=== PATIENT | female | born 2000 | race African-American/Black ===

== ENCOUNTER 2022-12-29 10:08 | Outpatient (CLI) | payer OTHER, SELFPAY ==
[2022-12-29 10:44] LABS: Basophils Percent Auto 0.4 % (0.2-1.2); Eosinophils Absolute Auto 0.3 K/mm3 (0-0.3); Eosinophils Percent Auto 3.1 % (0-4.4); Hematocrit 31.9 % (37.0-47.0); Hemoglobin 10.8 g/dL (12.0-15.0); Immature Granulocyte Absolute 0.04 K/mm3 (0.00-0.031); Immature Granulocyte Percent A 0.4 % (0-0.5); Lymphocytes Absolute Auto 2.76 K/mm3 (0.9-3.2); Mean Corpuscular HGB Conc 33.9 g/dl (32-36); Mean Corpuscular Hemoglobin 31.7 pg (26-34); Mean Corpuscular Volume 93.5 fl (80-100); Mean Platelet Volume 9.3 fl (7.4-10.4); Monocytes Absolute Auto 0.9 K/mm3 (0.1-0.6); Neutrophils Absolute Auto 5.8 K/mm3 (1.3-6.7); Neutrophils Percent Auto 59.1 % (45.5-73.1); Platelet Count Result 290 k/mm3 (150-375); Red Blood Count 3.41 M/mm3 (4.2-5.4); Red Cell Distribution Width 13.4 % (11.5-14.5); White Blood Count 9.9 K/mm3 (4.5-10.0)
[2022-12-29 11:38] LABS: HIV 1/2 Ab P24 Ag Result Negative (Negative)
[2022-12-29 12:20] LABS: Hepatitis B Surface Antigen Negative (Negative); Rubella IgG Antibody 16.6 IU/ML
[2022-12-30 11:22] LABS: Rapid Plasma Reagin Non-Reactive (NonReactive)
== END 2022-12-29 10:09 | disposition home or self-care (01) ==
PROVIDERS: Visit Provider Student in an Organized Health Care Education/Training Program
DX: N91.2 Amenorrhea, unspecified (principal)
CPT/HCPCS: 36415; 84702; 85025; 85660; 86592; 86644; 86703; 86747; 86762; 86787; 86850; 86900; 86901; 87086; 87340; G0432

== ENCOUNTER 2023-02-26 13:10 | Outpatient (CLI) | payer OTHER, SELFPAY ==
[2023-02-26 14:03] LABS: Iron 268 ug/dL (37-170)
[2023-02-26 14:12] LABS: Percent Iron Saturation 71 % (20-50)
== END 2023-02-26 13:11 | disposition home or self-care (01) ==
LOC: ANHLAB 13:11
PROVIDERS: Visit Provider Obstetrics & Gynecology
DX: D64.9 Anemia, unspecified (principal)
CPT/HCPCS: 36415; 82728; 83540; 83550

== ENCOUNTER 2023-03-15 14:55 | Outpatient (CLI) | payer OTHER, SELFPAY ==
[2023-03-15 16:21] LABS: Hematocrit 32.1 % (37.0-47.0); Hemoglobin 10.5 g/dL (12.0-15.0); Mean Corpuscular HGB Conc 32.7 g/dl (32-36); Mean Corpuscular Volume 97.9 fl (80-100); Mean Platelet Volume 9.4 fl (7.4-10.4); Platelet Count Result 235 k/mm3 (150-375); Red Blood Count 3.28 M/mm3 (4.2-5.4); Red Cell Distribution Width 13.4 % (11.5-14.5); White Blood Count 8.3 K/mm3 (4.5-10.0)
[2023-03-15 16:37] LABS: Glucose 1 Hour PP 50gm Dose 106 mg/dL
[2023-03-15 17:15] LABS: HIV 1/2 Ab P24 Ag Result Negative (Negative)
== END 2023-03-15 14:56 | disposition home or self-care (01) ==
LOC: ANHLAB 14:56
PROVIDERS: Visit Provider Student in an Organized Health Care Education/Training Program
DX: Z34.90 Encounter for supervision of normal pregnancy, unspecified, unspecified trimester (principal); Z3A.00 Weeks of gestation of pregnancy not specified
CPT/HCPCS: 36415; 82947; 85027; 86703; G0432

== ENCOUNTER 2023-05-29 20:32 | Observation (INO) | payer OTHER, SELFPAY ==
--- NOTE | 2023-05-29 22:55 | PC.NURSE ---
[address] LOWRY[address] DISCHARGE ORDERS RECEIVED.
[2023-05-29 23:04] VITALS: BMI 26.2
--- NOTE | 2023-05-29 23:05 | OBADM ---
This patient, Ramona Reynoso, admitted to the OB room OB Post 117 for observation. Patient/family oriented to hospital policies and general routines including ID bracelet, bed and alarms, visiting hours, pain management, procedures, bathroom and other care routines, personal items, smoking policy, room service/diet, and visiting hours. Patient/Family are encouraged to report perceived risks to care and to ask questions if they do not understand what they are told or what they should do.
--- NOTE | 2023-05-29 23:20 | PC.NURSE ---
DISCHARGE INSTRUCTIONS GIVEN VERBALLY AND WRITTEN TO PT. PT DENIES QUESTIONS OR CONCERNS AND VERBALIZES UNDERSTANDING. PT LEAVES L&D AMBULATORY.
--- NOTE | 2023-06-01 07:39 | PM.OBTRLD ---
OB - Triage/Final Diagnosis Visit Information Comments/Additional reasons for admission: I have assessed the risk for this patient, Ramona Reynoso, and determined that she would benefit from observation care. Final Diagnosis (1) Round ligament pain: Code(s): N94.9 - Unspecified condition associated with female genital organs and menstrual cycle Status: Acute
== END 2023-05-29 23:20 | disposition home or self-care (01) ==
PROVIDERS: Admitting Provider Obstetrics & Gynecology; Visit Provider Student in an Organized Health Care Education/Training Program
DX: O26.893 Other specified pregnancy related conditions, third trimester (principal); R10.2 Pelvic and perineal pain; Z3A.39 39 weeks gestation of pregnancy
CPT/HCPCS: G0378; G0379

== ENCOUNTER 2023-06-01 19:50 | Inpatient (IN) | payer OTHER, SELFPAY ==
[2023-06-01] VITALS (19 sets, daily range): BP systolic 120–138; BP diastolic 75–89; PULSE 64–111; TEMP 36.4; O2SAT 99–100; BMI 24.5
--- NOTE | 2023-06-01 22:20 | LDADM ---
This patient, Ramona Reynoso, was admitted to Labor/Delivery/Recovery 107 on 06/01/23 at 21:31. Plans for labor, pain management and were discussed with patient. Patient/family oriented to hospital policies and general routines including ID bracelet, bed and alarms, visiting hours, pain management, procedures, bathroom and other care routines, personal items, smoking policy, room service/diet and guest tray routines, security routines, and visiting hours. Patient/Family are encouraged to report perceived risks to care and to ask questions if they do not understand what they are told or what they should do. See OBIX for further documentation.
[2023-06-01] MEDS: LACTATED RINGERS 1,000 ML 125 ML IV CONT (22:30)
[2023-06-01] MEDS: fentaNYL CITRATE INJ (*CRX) 100 MCG/2 ML VIAL 50 MCG IV PUSH (22:30)
[2023-06-01 22:34] LABS: Basophils Percent Auto 0.4 % (0.2-1.2); Eosinophils Absolute Auto 0.1 K/mm3 (0-0.3); Eosinophils Percent Auto 0.7 % (0-4.4); Hematocrit 38.1 % (37.0-47.0); Hemoglobin 13.2 g/dL (12.0-15.0); Immature Granulocyte Absolute 0.05 K/mm3 (0.00-0.031); Immature Granulocyte Percent A 0.6 % (0-0.5); Lymphocytes Absolute Auto 2.21 K/mm3 (0.9-3.2); Lymphocytes Percent Auto 26.7 % (18.3-44.2); Mean Corpuscular HGB Conc 34.6 g/dl (32-36); Mean Corpuscular Hemoglobin 32.6 pg (26-34); Mean Corpuscular Volume 94.1 fl (80-100); Mean Platelet Volume 9.9 fl (7.4-10.4); Monocytes Absolute Auto 0.6 K/mm3 (0.1-0.6); Monocytes Percent Auto 7.6 % (2.6-8.5); Neutrophils Absolute Auto 5.3 K/mm3 (1.3-6.7); Platelet Count Result 242 k/mm3 (150-375); Red Blood Count 4.05 M/mm3 (4.2-5.4); Red Cell Distribution Width 12.7 % (11.5-14.5); White Blood Count 8.3 K/mm3 (4.5-10.0)
--- NOTE | 2023-06-01 23:30 | WPDANESEPPF ---
Anes - Initial Pre Proc Eval Procedure: Labor epidural Date/Time: 06/01/23 23:30 Surgeon: Dirk Mccallum MD Pre Op Diagnosis: Labor Pain Pre Op Diagnosis: Contractions Patient Data Age: 22 Gender: F Height: 1.6 m Weight: 63 kg Last Vital Signs Pulse 86 06/01/23 23:28 BP 128/82 06/01/23 23:28 Pulse Ox 100 06/01/23 23:29 O2 Del Method Room Air 06/01/23 22:16 Allergies Allergy/AdvReac Type Severity Reaction Status Date / Time No Known Allergies Allergy Verified 05/26/23 14:46 Home Medications Medication Instructions Recorded Confirmed Type ondansetron HCl 4 mg tablet 4 mg PO Q6H PRN nausea and 04/14/23 04/14/23 Rx vomiting #30 tabs ferrous sulfate 325 mg (65 mg 325 mg PO DAILY #90 tabs 04/29/23 04/29/23 Rx iron) tablet vits no.126-ferrous fum 1 tablet PO .QD #60 tabs 04/29/23 04/29/23 Rx 28 mg iron-folic acid 800 mcg tablet (Classic ) Laboratory Tests 06/01/23 22:27 WBC 8.3 K/mm3 (4.5-10.0) RBC 4.05 L M/mm3 (4.2-5.4) Hgb 13.2 g/dL (12.0-15.0) Hct 38.1 % (37.0-47.0) MCV 94.1 fl (80-100) MCH 32.6 pg (26-34) MCHC 34.6 g/dl (32-36) RDW 12.7 % (11.5-14.5) Plt Count 242 k/mm3 (150-375) MPV 9.9 fl (7.4-10.4) Immature Gran % (Auto) 0.6 H % (0-0.5) Neut % (Auto) 64.0 % (45.5-73.1) Lymph % (Auto) 26.7 % (18.3-44.2) [place] % (Auto) 7.6 % (2.6-8.5) Eos % (Auto) 0.7 % (0-4.4) Baso % (Auto) 0.4 % (0.2-1.2) Lymph # (Auto) 2.21 K/mm3 (0.9-3.2) [place] # (Auto) 0.6 K/mm3 (0.1-0.6) Eos # (Auto) 0.1 K/mm3 (0-0.3) Baso # (Auto) 0.0 K/mm3 (0.0-0.1) Abs Immat Gran (auto) 0.05 H K/mm3 (0.00-0.031) Absolute Neuts (auto) 5.3 K/mm3 (1.3-6.7) Absolute Nucleated RBC 0.0 K/mm3 (0.0-0.012) Nucleated RBC % 0.0 % (0.0-0.2) RPR Pending Patient hx anesthesia problems: none Family hx anesthesia problems: none Results Review: All pre-operative results and documents have been reviewed as part of the pre-operative evaluation. PMFSH Family History Family History Mother Hypertension Social History Social History Smoking status: Never smoker Alcohol intake: never Substance use: never Lack of Transportation: No Lack of Food: Never True Current Housing: I Have Housing Concerned About Future Housing: No Difficulty Paying Gas/Electric Bills: No Difficulty Paying for Meds: No Currently Unemployed: No Education: High School Diploma/GED Difficulty w/ Childcare or Family Care: No Living arrangements: with family Occupation/Education: occupation Gender identity (if verbalized by the patient): Female Sexual Orientation (if Verbalized by the Patient): Straight or Heterosexual Spiritual care concerns: No Anes - Eval Final PreProcedure Day of Procedure 06/01/23 23:30 Patient weight: normal Heart: regular rate and rhythm Neurological: alert and oriented ASA classification: II Anesthetic plan: proceed Anesthesia type and monitoring: regional epidural and standard monitoring Results Review: All pre-operative results and documents have been reviewed as part of the pre-operative evaluation. Informed Consent: The patient's anesthetic plan and its attendant risks and benefits were discussed with the patient/family/POA. Questions were solicited and answers provided to the satisfaction of the patient/family/POA.
--- NOTE | 2023-06-01 23:52 | WPDANESEPN ---
Anes - Epidural Procedure Note Date/Time: 06/01/23 23:52 Consent: I have discussed with the patient/family/POA, the placement of an epidural catheter and the use of epidural narcotic/local anesthetic for labor analgesia and/or postoperative pain management, including associated potential risks, benefits, complications and side effects. I have discussed alternative methods of labor analgesia and/or postoperative pain management. The patient/family/POA, understand(s) and wish(es) to proceed with epidural narcotic/local anesthetic for labor analgesia and/or postoperative pain management. Time-Out: A pre-procedural Time-Out was completed immediately before starting the procedure and confirmed: Patient Identification, Site, Procedure, Patient Position and the Availability of Requisite Equipment. Clinical Indications: Labor pain Epidural Insertion Note Patient position: sitting Skin prep: chlorhexidine and sterile drape Needle: 17g Tuohy Catheter: 19g Arrow FlexTip Plus Technique: Loss of resistance. Level of insertion: L3/4 Catheter skin reza (cm): 9 Length in epidural space (cm): 4 Skin anesthesia: lidocaine 1% Test dose: 1.5% Lidocaine with 1:[id number] Epi, negative for subarachnoid Inj and negative for intravascular Inj Time of test dose: 23:46 Observations: tolerated well Complications: none
[2023-06-02] VITALS (123 sets, daily range): BP systolic 99–136; BP diastolic 54–111; PULSE 40–174; RESP 16–18; TEMP 36.2–36.8; O2SAT 75–100
[2023-06-02] MEDS: LACTATED RINGERS 1,000 ML 125 ML IV CONT (00:01)
[2023-06-02] MEDS: OXYTOCIN 30 UNITS/NS 500 ML 30 UNITS/500 ML BAG 999 UNITS IV CONT (06:00)
[2023-06-02] MEDS: OXYTOCIN 30 UNITS/NS 500 ML 30 UNITS/500 ML BAG 125 UNITS IV CONT (07:41)
--- NOTE | 2023-06-02 07:51 | WPDHPUPDATE1 ---
History and Physical Update Update Date/Time: 06/02/23 07:51 22 yo G1 at 39w6d who presents in labor. Her is uncomplicated thus far. History and Physical has been reviewed, including an updated exam of the patient. There are NO changes in the patient's condition. Risks, benefits, and alternatives have been discussed and questions answered. Patient agrees to proceed with procedure. A/P: admit to L&D routine admission orders Rh+ GBS neg continuous EFM admit for expectanat management
--- NOTE | 2023-06-02 07:54 | PM.OBPRVD ---
OB - Delivery Note Procedure Delivery date: 06/02/23 Induction method: None Delivery monitor: External FHT and External Uterine Route of delivery: Episiotomy description: None Laceration Description: Perineal - 2nd Degree Delivery repair: vicryl Specimen: No Quantitative Blood Loss (ml): 200 Anesthesia type: Epidural Disposition: Floor Baby Date of : 06/02/23 Time of : 06:57 Weeks of gestation at delivery: 39 gender: Male presentation: vertex position: Right Occiput Anterior Placenta delivery description: Spontaneous Cord Vessel Description: 3 Vessels score one minute: 9 score five minutes: 9 AMG Delivery Billing Delivery Delivery: Delivery Charge
[2023-06-02] MEDS: IBUPROFEN 600 MG TABLET PO ×3 (08:36→21:59)
[2023-06-02] MEDS: WITCH HAZEL 40 PADS 1 PAD TOPICAL (09:14)
[2023-06-02] MEDS: BENZOCAINE 20% AER SPR (*SP) 56 GM CAN 1 SPRAY TOPICAL (09:14)
--- NOTE | 2023-06-02 09:40 | OBPPTRN ---
Patient transferred to post room # 292 via wheelchair accompanied by fob and . Support person present. PT introductions made and plan of care discussed per post , pain management, breast feeding, daily care activities. PT Oriented to unit, room, information board, rooming in, admission packet and security measures. PT and fob both recipients of such instructions and no barriers to learning identified at this time. PT received such instructions per one to one discussion, mom baby care guide and demonstrations this shift. Patient verbalizes understanding.
[2023-06-02 10:43] LABS: Rapid Plasma Reagin Non-Reactive (NonReactive)
--- NOTE | 2023-06-02 12:01 | PC.NURSE ---
[id number] Introductions were made, then consulted with patient to assess needs related to per request from Primary RN. Mother is sleeping but the plan is to wake her at 1130 to breastfeed. Once awake mother states her did not latch on the right breast. Mother is encouraged to go to the restroom and get comfortable in the bed with [id number] and call for assistance. Father of baby is helpful. RN changed the 3rd stool diaper since . Infant is awake and demonstrating feeding cues. Mother remains in the restroom and voices placing infant [id number] when she gets out. Name is written on the communication board to call for questions and assistance.
--- NOTE | 2023-06-02 13:24 | PC.NURSE ---
[id number] Re-introductions were made, then consulted with patient to assess needs related to . Mother states she wants to breastfeed. Mother works well with her with encouragement and education. Encouraged understanding of the benefits of skin to skin (demonstrating unwrapping and placing upright on her chest), stimulating with massage touch, changing positions to encourage wakefulness, how to watch for early feeding cues, responsive feeding, feeding on demand (aiming for 8-12 times in 24 hours, about every 2-3 hours), milk production, building/maintaining a milk supply, duration of feeding, signs of adequate intake/output and how to record on the feeding sheet. Reviewed positioning and ear, shoulder, hip alignment, supporting the breast to facilitate a deep latch, asymmetrical latch (off-center), leading with the chin with a big, open, wide gape and body close to mother. Infant latched optimally to the right breast in football position. Education given to mother of how to visualize suck/swallows. was able to maintain latch without discomfort to mother after the initial discomfort. During attempts at times will latch shallow as he is eager and starts to close his mouth and lift his tongue quickly when he fills the nipple. Nipple care reviewed with optimal latch and good positioning. After infant was detached requested by mother to practice latching to the other breast, mother was reminded of how to detach , to detach if there's pain, breastfeed on demand switching breast for swallowing, keeping actively and it is typical to need to attempt a few times to get an optimal latch. We reviewed signs of effective together as her infant demonstrated. Mother was a little undecided on how she wanted to feed her stating breast, bottle and pumping all within 5 minutes. Mother was encouraged with the positive efforts from her and her . Mother was educated on the risks and benefits of each choice so she can make an informed choice. Infant is [id number] with mother showing feeding cues. RN asked mother if she would like assistance or stop the consult. Mother requested assistance but would like to try a different position. Reviewed positioning, supporting the breast to facilitate a deep latch, asymmetrical latch (off-center), leading with the chin with a big, open, wide gape and body close to mother. latched optimally to the left breast in cross cradle position. Resources used to facilitate learning were used with the mom and baby guide. Mother voiced understanding of skin to skin, stimulating with massage touch, responsive feedings, encouraging if it has been 2 -2.5 hours since the start of the last , to call if infant does not latch, or if there is discomfort with . Resources provided for inpatient name written on the communication board. Father of baby encouraged mother to speak up concerning and needs or questions. Mother presents as a silent learner. Father voiced understanding of information, mother demonstrated learning and they were encouraged to call if there is a request for assistance. Reported to primary RN.
[2023-06-02] MEDS: ACETAMINOPHEN 325 MG TABLET 650 MG PO ×2 (15:10→21:58)
[2023-06-02] MEDS: DOCUSATE SODIUM 100 MG CAPSULE PO (15:11)
[2023-06-02] MEDS: LANOLIN (LANSINOH) 7.5 GM CREAM 1 APPLIC TOPICAL (15:12)
[2023-06-03 03:50] VITALS: BP 91/55; PULSE 91; RESP 18; TEMP 36.5; O2SAT 99
[2023-06-03 05:00] LABS: Hemoglobin 9.4 g/dL (12.0-15.0)
--- NOTE | 2023-06-03 07:00 | PC.NURSE ---
PT introductions made and plan of care discussed per post , pain management, breast feeding, daily care activities. PT sole recipient of such instructions and no barriers to learning identified at this time. PT received such instructions per one to one discussion, mom baby care guide and demonstrations this shift. PT verbalized understanding of such care.
--- NOTE | 2023-06-03 07:56 | PM.OBDSVD ---
DS: Admitting Diagnosis Discharge Date 06/03/23 Admitting Diagnosis Intrauterine at term DS: Discharge Diagnosis Discharge Diagnosis (1) Normal vaginal delivery: Code(s): O80 - Encounter for full-term uncomplicated delivery Status: Acute OB - DS: Summary OB Procedures : None OB Procedures Intrapartum: Spontaneous Vag Delivery OB Procedures: : None Status at Discharge Functional status at discharge: independent ambulation Overall status at discharge: patient is back to baseline Time Spent with Patient Time attestation: Total time spent providing and/or coordinating discharge services: Time spent: Less than 30 minutes Exam Const: General: comfortable and no acute distress Resp: Effort & Inspection: normal respiratory effort Auscultation: clear to auscultation bilaterally Cardio: Rate: regular rate GI: GI Palp: Yes Soft to palpation Auscultation: normal bowel sounds Other: Fundus firm below umbilicus Psych: Appearance: grossly normal Mental Status: mental status grossly normal Affect: normal affect DS: Data Data Completed and Pending Labs on day of discharge: Labs from last 24 hours 06/03/23 06/01/23 03:36 22:27 Hgb 9.4 L D Hct 28.0 L RPR Non-reactive Discharge Plan Discharge Discharging Clinician: Kristopher Charles Patient Disposition: Home, Self-Care Activity: as tolerated and pelvic rest Diet: regular Patient Instructions: Antibiotic Form, Vaginal Delivery (DC) Stand Alone Forms: General Discharge Information Follow-up/Referrals: Kristopher Charles MD [Physician] - Discharge Medications: New ibuprofen 600 mg tablet 600 mg PO Q6H PRN (Reason: pain) Qty: 30 0RF acetaminophen 500 mg tablet 500 mg PO Q6H PRN (Reason: pain) Qty: 30 0RF Continued ondansetron HCl 4 mg tablet 4 mg PO Q6H PRN (Reason: nausea and vomiting) Qty: 30 1RF ferrous sulfate 325 mg (65 mg iron) tablet 325 mg PO DAILY Qty: 90 1RF Classic 28 mg iron- 800 mcg tablet 1 tablet PO .QD Qty: 60 1RF Date of admission: 06/01/23 21:31 Primary Care Provider: UNKNOWN,DOCTOR Admitting Provider: Dirk Mccallum Attending physician on admission: Dirk Mccallum Condition: Stable
[2023-06-03] MEDS: MULTIVIT/MIN/PREN/FOL AC/IRON TABLET 1 TAB PO (09:09)
[2023-06-03] MEDS: POLYSACCHARIDE IRON COMPLEX 150 MG CAPSULE PO ×2 (09:09→16:29)
[2023-06-03] MEDS: ACETAMINOPHEN 325 MG TABLET 650 MG PO ×2 (09:09→16:27)
[2023-06-03] MEDS: DOCUSATE SODIUM 100 MG CAPSULE PO ×2 (09:09→16:27)
[2023-06-03 09:10] VITALS: PULSE 88; RESP 16; O2SAT 100
[2023-06-03] MEDS: IBUPROFEN 600 MG TABLET PO ×2 (09:10→16:28)
[2023-06-03 09:15] VITALS: BP 105/71; PULSE 88; RESP 16; TEMP 36.5; O2SAT 100
--- NOTE | 2023-06-03 09:34 | WPDANLDPN2 ---
Anes-Prog Note L&D Date/Time: 06/03/23 09:34 Comfortable throughout: labor and delivery Neuraxial method: epidural Epidural/Spinal procedure site: clean & non-tender Neuro status: Neuro function grossly intact. Cardiovascular status: normal Respiratory status: normal Airway patency: baseline Mental status: baseline Post-Op hydration status: normal Vital Signs: Last Vital Signs Temp 36.5 C 06/03/23 03:50 Pulse 91 06/03/23 03:50 Resp 18 06/03/23 03:50 BP 91/55 L 06/03/23 03:50 Pulse Ox 99 06/03/23 03:50 O2 Del Method Room Air 06/02/23 19:45 Pain score (VAS): 09/01 Post-procedural complaints: none Patient feedback: Patient satisfied with anesthetic care.
--- NOTE | 2023-06-03 15:39 | PC.NURSE ---
1500 - Mother nodded and confirmed her plan to feed her infant and her ability to independently latch infant optimally without discomfort. Mother is appears to be a silent learner and is not talkative. Father of baby encourages mother to speak up at times in a kind manner. Reminded parents to use good handwashing technique to prevent infection. Mother is feeding appropriately for growth of and understands stimulating infant to eat if needed. has had appropriate feedings in the last 24 hours meets the outcomes for weight, output and jaundice at this time. Mother states she is confident to continue effectively her infant at home, when to call for assistance, denies any additional assistance or education at this time and is in contact with her [employer] resource counselor Yuliet DELVALLE. Reinforced understanding of milk production, transition of milk, signs of adequate intake, transition of stool, prevention/relief of engorgement, plugged ducts, mastitis, responsive watching for feeding cues, the different methods of stimulating infant to breastfeed 2-3 hours after the start of the last feeding, community resources and when to call a provider using the resource of the mom and baby guide and handouts. Mother voiced understanding of the education shared.
--- NOTE | 2023-06-03 16:30 | PC.NURSE ---
Patient was given the opportunity to view the discharge video Mother & Baby Care, The First Two Weeks and to ask questions. Patient declined viewing the video and has been given the mother/baby guide for home reference. PT received discharge instructions per protocol and verbalized understanding of such care,
--- NOTE | 2023-06-03 17:05 | PC.NURSE ---
PT discharged to home ambulatory accompanied by fob and infant and walked to waiting vehicle. Follow up appts confirmed
[2023-06-04 10:31] VITALS: BP 116/73; PULSE 82; RESP 18; TEMP 37.1; O2SAT 100
== END 2023-06-03 17:05 | disposition home or self-care (01) | DRG 560 ==
LOC: ANHLDR 06-02 09:00 → ANHOB2 06-03 07:57 → ANHLDR 06-04 08:36 → ANHOB2 06-04 08:36
PROVIDERS: Admitting Provider Obstetrics & Gynecology; Visit Provider Student in an Organized Health Care Education/Training Program
DX: O70.1 Second degree perineal laceration during delivery (principal); Z37.0 Single live birth; Z3A.39 39 weeks gestation of pregnancy
CPT/HCPCS: 36415; 85014; 85018; 85025; 86592; 86850; 86900; 86901; A9270; J2590; J2795; J3010; J7120

== ENCOUNTER 2023-12-19 15:46 | Emergency (ER) | payer OTHER, SELFPAY ==
[2023-12-19 15:59] VITALS: BP 120/87; PULSE 62; RESP 15; TEMP 36.4; O2SAT 100
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
[2023-12-19] MEDS: IBUPROFEN 600 MG TABLET PO (16:29)
== END 2023-12-19 16:36 | disposition home or self-care (01) ==
PROVIDERS: Emergency Provider Emergency Medicine
DX: S39.012A Strain of muscle, fascia and tendon of lower back, initial encounter (principal); R51.9 Headache, unspecified; V43.52XA Car driver injured in collision with other type car in traffic accident, initial encounter
CPT/HCPCS: 99283; A9270

== ENCOUNTER 2024-01-31 15:06 | Outpatient (CLI) | payer OTHER, SELFPAY ==
[2024-01-31 15:47] LABS: Beta HCG Quantitative < 2.39 mIU/ML
== END 2024-01-31 15:07 | disposition home or self-care (01) ==
LOC: ANHLAB 15:07
PROVIDERS: Visit Provider Student in an Organized Health Care Education/Training Program
DX: N92.6 Irregular menstruation, unspecified (principal)
CPT/HCPCS: 36415; 84702

== ENCOUNTER 2024-02-28 00:30 | Emergency (ER) | payer OTHER, SELFPAY ==
[2024-02-28] VITALS (20 sets, daily range): BP systolic 91–127; BP diastolic 54–86; PULSE 72–105; RESP 15–28; TEMP 36.6; O2SAT 96–100
--- NOTE | ~2024-02-28 | CT_ITS ---
Non-contrast Head CT History: Altered mental status Technique: Axial non-contrast imaging of the brain was performed. Dose reduction technique was used on this scan by utilizing automated exposure control and iterative reconstruction technique. The dose -length product (DLP) was 605.33 mGy-cm. Findings: There is no evidence of intracranial hemorrhage, mass lesion, or acute infarct. Brain par enchyma appears normal. The ventricles and subarachnoid spaces are normal in size. The calvarium ap pears normal. The visualized paranasal sinuses and mastoid air cells are clear. Impression: No significant abnormality seen. Reviewed, dictated and finalized at location . Impression: No significant abnormality seen.
--- NOTE | 2024-02-28 01:32 | ECG_ITS ---
Test Date: 2024-02-28 01:50:42 Measurements Intervals [place] Rate: 79 P: 55 [place]: 119 QRS: 45 QRSD: 89 T: 39 QT: 344 QTc: 395 Interpretive Statements SINUS RHYTHM WITH SINUS ARRHYTHMIA WITH SHORT [place] INTERVAL EARLY PRECORDIAL R/S TRANSITION BORDERLINE ECG No previous ECG available for comparison Electronically Signed On 02-28-2024 06:12:55 CDT by Jayesh Olivera D.O.
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
--- NOTE | 2024-02-28 02:06 | PC.NURSE ---
Patient taken to CT at this time.
[2024-02-28 02:08] LABS: Basophils Percent Auto 0.4 % (0.2-1.2); Eosinophils Absolute Auto 0.3 K/mm3 (0-0.3); Eosinophils Percent Auto 3.6 % (0-4.4); Hematocrit 37.3 % (37.0-47.0); Hemoglobin 12.8 g/dL (12.0-15.0); Immature Granulocyte Absolute 0.02 K/mm3 (0.00-0.031); Immature Granulocyte Percent A 0.3 % (0-0.5); Lymphocytes Absolute Auto 2.71 K/mm3 (0.9-3.2); Lymphocytes Percent Auto 34.8 % (18.3-44.2); Mean Corpuscular HGB Conc 34.3 g/dl (32-36); Mean Corpuscular Hemoglobin 32.1 pg (26-34); Mean Corpuscular Volume 93.5 fl (80-100); Monocytes Absolute Auto 0.7 K/mm3 (0.1-0.6); Monocytes Percent Auto 8.9 % (2.6-8.5); Neutrophils Absolute Auto 4.1 K/mm3 (1.3-6.7); Platelet Count Result 338 k/mm3 (150-375); Red Blood Count 3.99 M/mm3 (4.2-5.4); Red Cell Distribution Width 12.7 % (11.5-14.5); White Blood Count 7.8 K/mm3 (4.5-10.0)
[2024-02-28 02:22] LABS: Alanine Aminotransferase 13 U/L (6-35); Albumin Level 4.3 g/dL (3.5-5.1); Alkaline Phosphatase 68 U/L (38-126); Anion Gap 10 mmol/L (4-12); Aspartate Amino Transferase 21 U/L (14-36); Bilirubin,Total 0.3 mg/dL (0.2-1.3); Blood Urea Nitrogen 11 mg/dL (7-17); Calcium 9.2 mg/dL (8.4-10.2); Carbon Dioxide 22 mmol/L (22-30); Chloride 109 mmol/L (98-107); Estimated CRCL calculation 100 ml/min; Estimated Glomerular Filt Rate > 60; Glucose 103 mg/dL (65-110); Magnesium 1.8 mg/dL (1.6-2.3); Potassium 3.6 mmol/L (3.4-5.0); Sodium 141 mmol/L (137-145)
[2024-02-28] MEDS: levETIRAcetam 1500MG/NACL100ML 1,500 MG/100 ML BAG 400 MG IVPB (02:42)
[2024-02-28 03:00] LABS: Lactic Acid Reflex 0.7 mmol/L (0.7-2.0)
[2024-02-28 03:58] LABS: Appearance Urine Clear (Clear); Bacteria Urine Rare /hpf; Bilirubin Urine Negative (Negative); Blood Urine Negative (Negative); Color Urine Yellow (Yellow); Glucose Urine UA Negative (Negative); Ketones Urine Trace mg/dL (Negative); Leukocyte Esterase Ur Trace LEU/UL (Negative); Nitrate Urine Negative (Negative); Non Pathogenic Casts 0-2; Protein Urine Negative (Negative); RBC Urine 0-2 /hpf (0-2); Specific Grav Ur 1.032 (1.001-1.035); Squamous Epithelial Cell Urine Occasional /hpf (Few)
[2024-02-28 04:11] LABS: Add Urine Microscopic? YES
[2024-02-28 05:24] LABS: Pregnancy On Board Control Positive; Urine Pregnancy Test Negative
== END 2024-02-28 05:38 | disposition home or self-care (01) ==
PROVIDERS: Emergency Provider Student in an Organized Health Care Education/Training Program
DX: R56.9 Unspecified convulsions (principal)
CPT/HCPCS: 36415; 70450; 80053; 81001; 81025; 83605; 83735; 85025; 87086; 93005; 96365; 99284; J1953

== ENCOUNTER 2024-02-29 09:41 | Emergency (ER) | payer OTHER, SELFPAY ==
[2024-02-29 09:51] VITALS: BP 111/72; PULSE 71; RESP 20; TEMP 36.6; O2SAT 100
--- NOTE | 2024-02-29 12:26 | ED.GENADULT ---
HPI - General Adult General Chief complaint: Unspecified Stated complaint: shaking Time Seen by Provider: 02/29/24 11:31 History of Present Illness HPI narrative: This is a 23-year-old female, who is seen in this emergency department yesterday for episodes of shaking who returns to the emergency department with an additional episode of shaking. The patient was evaluated yesterday for possible seizures. Workup was unremarkable. Admission versus discharge with antiepileptics was discussed and the patient declined. The today, the patient states she had an episode of shaking in the bilateral upper arms with some confusion shortly thereafter. She denies recurrent episodes. She has no other complaints at this time. She wishes to discuss treatment options. She states she has an appointment scheduled with Neurology on the of this month. Related Data Allergies Allergy/AdvReac Type Severity Reaction Status Date / Time No Known Allergies Allergy Verified 02/28/24 00:59 Review of Systems Review of Systems: All systems reviewed & are unremarkable except as noted in HPI and below PMFSH Past Medical History Medical History Encounter for Depo-Provera contraception Encounter for gynecological examination Family History Family History Mother Hypertension Social History Social History Smoking status: Never smoker Alcohol intake: never Substance use: never Lack of Transportation: No Lack of Food: Never True Current Housing: I Have Housing Concerned About Future Housing: No Difficulty Paying Gas/Electric Bills: No Difficulty Paying for Meds: No Currently Unemployed: No Education: High School Diploma/GED Difficulty w/ Childcare or Family Care: No Living arrangements: with family Occupation/Education: occupation Gender identity (if verbalized by the patient): Female Sexual Orientation (if Verbalized by the Patient): Straight or Heterosexual Spiritual care concerns: No Exam Narrative: GENERAL: Well-developed, well-nourished, and in no acute distress. HEAD: Normocephalic, atraumatic. EYES: PERRLA and EOMI. ENT: No noted tongue biting. Nares clear, no rhinorrhea or epistaxis. Mucous membranes moist. Oropharynx without tonsillar hypertrophy exudate or other lesions. CHEST: Clear to auscultation. No respiratory distress. No wheezes rales or rhonchi HEART: Regular rate and rhythm. No murmur heard. Normal peripheral pulses. ABDOMEN: Soft, nontender, nondistended, normal active bowel sounds. EXTREMITIES: Normal range of motion. No edema. SKIN: Warm, dry, no rash. NEURO: Alert and oriented x3. No focal deficit. Moving all 4 limbs spontaneously PSYCH: Normal mood and affect. Course Course Emergency Course: 12:28 - The patient's exam is unremarkable. I discussed management options with the patient, including repeat labs and discussion with neurology and hospitalist after observation verses beginning a course of oral antiepileptics and follow-up as planned with neurology. The patient prefers to follow up. In the absence of other changes in health or medications, I do not suspect the need for repeat labs. I discussed the findings and recommendations with the patient. Discussed return and emergency precautions including signs/symptoms of focal neuro deficit and status epilepticus. The patient voiced understanding and agreement with the plan. All questions answered to her satisfaction. Vital Signs Vital signs: Vital Signs Temperature 97.8 F 02/29/24 09:51 Pulse Rate 71 02/29/24 09:51 Respiratory Rate 20 02/29/24 09:51 Blood Pressure 111/72 02/29/24 09:51 Pulse Oximetry 100 02/29/24 09:51 Oxygen Delivery Room Air 02/29/24 09:51 Temperature 97.8 F 02/29/24 09:51 Pulse Rate 71 02/29/24 09:51 Respirator
== END 2024-02-29 12:35 | disposition home or self-care (01) ==
PROVIDERS: Emergency Provider Preventive Medicine Aerospace Medicine
DX: R56.9 Unspecified convulsions (principal)
CPT/HCPCS: 99283

== ENCOUNTER 2024-11-26 11:03 | Emergency (ER) | payer OTHER, SELFPAY ==
--- OUTSIDE RECORDS SUMMARY | 2024-11-26 11:06 | XMS_ITS | Clinical Summary ---
Author Organization [facility] Address [address] [place] [address] Phone Care Team Providers Care Environmental Aide Name Role Phone Stephan Kirk MD Primary Care Provider [phone] Allergies Active Allergy Reactions Criticality Noted Date Comments Shellfish Derived Itching Low 01/30/2023 Medications medroxyPROGEST ERone (DEPO-PROVERA) 150 mg/mL Suspension Inject 150 mg by intramuscular injection one time only. Active ferrous sulfate 325 mg (65 mg iron) Tablet, Delayed Release (E.C.) Take by mouth daily. Active DOCOSAHEXAENOI C ACID ORAL Take 1 Tablet by mouth daily. Active cetirizine (ZyrTEC) 10 mg tablet Take 10 mg by mouth daily. 2 Active acetaminophen (TYLENOL) 325 mg tablet Take 2 Tablets (650 mg) by mouth every 6 hours as needed for Other (See Comment) (See admin instructions). 4 Active escitalopram oxalate (LEXAPRO) 10 mg tablet Take 1 Tablet (10 mg) by mouth daily at bedtime. 30 Tablet 2 4 Active Active Problems Problem Noted Date Diagnosed Date Anxiety state 03/07/2024 Elevated prolactin level 03/07/2024 Seizure-like activity 03/06/2024 Seizure 03/06/2024 Encounters Date Type Department Care Team Description 11/14/2024 External Device Data [facility] Provider, Abstract 11/14/2024 External Device Data [facility] Provider, Abstract 11/08/2024 External Device Data [facility] Provider, Abstract 10/24/2024 External Device Data [facility] Provider, Abstract 10/03/2024 External Device Data [facility] Provider, Abstract 10/03/2024 External Device Data [facility] Provider, Abstract 09/14/2024 External Device Data [facility] Provider, Abstract 09/06/2024 External Device Data [facility] Provider, Abstract from Last 3 Months Social History Tobacco Use Types Packs/Day Years Used Date Smoking Tobacco: Never Smokeless Tobacco: Never Tobacco Cessation:Counseling Given: Not Answered Alcohol Use Standard Drinks/Week Comments Not Currently 0 (1 standard drink = 0.6 oz pur e alcohol) Feeling Safe Answer Date Recorded Are you in a relationship wi th someone who hurts you emotionally and/or physically? No 03/06/2024 Food Insecurity Answer Date Recorded Social/Environmental Concerns No concerns Transportation Needs Answer Date Record ed Social/Environmental Concerns No concerns Housing Stability Answer Date Recorded Social/Environmental Concerns No concerns Utility Needs Answer Date Recorded Social/Environmental Concerns No concerns Comments No Sex and Gender Information Value Date Recorded Sex Assigned at Not on file Legal Sex Female 12:43 PM CDT Gender Identity Not on file Sexual Orientation Not on file Last Filed Vital Signs Vital Sign Reading Time Taken Comments Blood Pressure 99/59 03/08/2024 11:52 AM CDT Pulse 81 03/08/2024 11:52 AM CDT Temperature 36.8 C (98.2 F) 03/08/2024 11:52 AM CDT Respiratory Rate 18 03/08/2024 11:52 AM CDT Oxygen Saturation 100% 03/08/2024 11:52 AM CDT Inhaled Oxygen Concentration - - Weight 60.3 kg (133 lb) 03/08/2024 6:00 AM CDT Height 160 cm (5' 3 ) 03/06/2024 8:11 PM CDT Body Mass Index 23.56 03/06/2024 8:11 PM CDT Plan of Treatment Health Maintenance Due Date Last Done Comments CHLAMYDIA SCREENING (ANNUAL) 11-24 YEARS 2013 HPV VACCINES (1 - 3-dose series) 2017 DTAP/TDAP/TD VACCINES (1 - Tdap) 2021 HEPATITIS B VACCINES (1 of 3 - 19+ 3-dose series) 2021 CERVICAL CANCER SCREENING 10/31/2023 HPV/Cotest (21-29) 10/31/2023 PAP SMEAR 10/31/2023 PAP SMEAR 10/31/2023 INFLUENZA VACCINE (#1) 2024 PNEUMOCOCCAL VACCINE 0-49 YEARS Aged Out No longer eligible based on patient's age to complete this topic Insurance [facility] MEDICAID Advance Directives For more information, please contact: [phone] * Full Code (Latest Code Status on File) Date Activated Date Inactivated Comments 03/06/2024 3:03 PM 03/08/2024 2:46 PM Care Teams Environmental Aide Relationship Specialty Start Date End Date Stephan Kirk MD [address] [place] [address] PCP - General Pediatrics 03/06/24
--- OUTSIDE RECORDS SUMMARY | 2024-11-26 11:06 | XMS_ITS | Clinical Summary ---
Author Organization [facility] Address [address] [facility] [place] [address] Care Team Providers Care Raw Products Director Name Role Phone Unavailable Primary Care Provider Unavailabl e Source Comments [facility],non-owned Affiliates and Associated Physician Practices is amultiple site organization consisting of ambulatory clinics and hospital sitesin [place], [place] and [place]. This disclosure is being madepursuant to the Care Everywhere program and may not contain all information available regarding this patient. Last updated 18.[facility] Allergies Active Allergy Reactions Criticality Noted Date Comments Shellfish Allergy Itching 01/30/2023 Medications * Be aware that medications may not be up to date on this document. Alwaysverify current medications with the patient. Medication Sig Dispensed Refills Start Date End Date Status chlorhexidine gluconate (HIBICLENS) 4 % solutionIndications :Ingrown right big toenail Soak toe in Hibiclens and water for 10 minutes, 1-2 x day 1 bottles 2 07/04/2018 Active Additional Information Patient not taking.Reported on 01/30/2023 Vit-Fe Fumarate-FA ( vitamin) 28-0.8 MG tablet Take 1 (one) tablet by mouth once daily Active Active Problems No known active problems Social History Tobacco Use Types Packs/Day Years Used Date Smoking Tobacco: Never Smokeless Tobacco: Never Tobacco Cessation:Counseling Given: Not Answered Alcohol Use Standard Drinks/Week Comments Never 0 (1 standard drink = 0.6 oz pur e alcohol) Sex and Gender Information Value Date Recorded Sex Assigned at Not on file Gender Identity Not on file Sexual Orientation Not on file Last Filed Vital Signs Vital Sign Reading Time Taken Comments Blood Pressure 112/82 01/30/2023 6:30 PM CDT Pulse 93 01/30/2023 6:17 PM CDT Temperature 37 C (98.6 F) 01/30/2023 6:17 PM CDT Respiratory Rate - - Oxygen Saturation 100% 01/30/2023 6:30 PM CDT Inhaled Oxygen Concentration - - Weight 61.2 kg (135 lb) 01/30/2023 6:17 PM CDT Height 160 cm (5' 3 ) 01/30/2023 6:17 PM CDT Body Mass Index 23.91 01/30/2023 6:17 PM CDT Plan of Treatment Health Maintenance Due Date Last Done Comments PAP SMEAR 2002 HIV SCREENING 2017 HPV VACCINE (1 - 3-dose series) 2017 CHLAMYDIA/GONORRHEA SCREENING 2018 MENINGOCOCCAL (Group B) VACC INE SHARED DECISION-MAKING (1 of 2 - Standard) 2018 HEPATITIS C SCREENING 10/25/2020 DTAP/TDAP/TD VACCINES (1 - Tdap) 2021 HEPATITIS B VACCINE (1 of 3 - 19+ 3-dose series) 2021 COVID-19 VACCINE (1 - 2023-2 5 season) 2024 INFLUENZA VACCINE (#1) 2024 05/11/2013 DEPRESSION SCREENING 08/23/2024 ZOSTER VACCINE (1 of 2) 2052 HIB VACCINE Aged Out No longer eligi ble based on patient's age to complete this topic MENINGOCOCCAL GROUPS A/C/Y/W VACCINE Aged Out No longer eligible b ased on patient's age to complete this topic PNEUMOCOCCAL VACCINE Aged Out No long er eligible based on patient's age to complete this topic MIGUELANGEL CLAYTON Personal/Family Other [address] [address]
[2024-11-26 11:35] VITALS: BP 112/72; PULSE 70; RESP 14; TEMP 36.6; O2SAT 100
[2024-11-26 13:18] VITALS: BP 103/69; PULSE 72; RESP 14; O2SAT 100
--- OUTSIDE RECORDS SUMMARY | 2024-11-26 13:55 | XMS_ITS | Clinical Summary ---
Author Organization [facility] Address [address] [place] [address] Phone Care Team Providers Care Lathe Scalper Operator Name Role Phone Stephan Kirk MD Primary Care Provider [phone] Allergies Active Allergy Reactions Criticality Noted Date [...] patient's age to complete this topic Insurance [facility] MEDICAID Advance Directives For more information, please contact: [phone] * Full Code (Latest Code Status on File) Date Activated Date Inactivated Comments 03/06/2024 3:03 PM 03/08/2024 2:46 PM Care Teams Lathe Scalper Operator Relationship Specialty Start Date End Date Stephan Kirk MD [address] [place] [address] PCP - General Pediatrics 03/06/24
--- OUTSIDE RECORDS SUMMARY | 2024-11-26 13:55 | XMS_ITS | Clinical Summary ---
Author Organization [facility] Address [address] [place] [address] Care Team Providers Care Shank Scourer Name Role Phone Unavailable Primary Care Provider Unavailabl e Source Comments [facility],non-owned Affiliates and Associated Physician Practices is amultiple site organization consisting of ambulatory clinics and hospital sitesin [place], [place] and [place]. This disclosure is being madepursuant to the Care Everywhere program and may not contain all information available regarding this patient. Last updated 18.[facility] Allergies Active Allergy Reactions Criticality Noted Date [...] this topic MIGUELANGEL CLAYTON Personal/Family Other [address] [address]
[2024-11-26] MEDS: MECLIZINE HCL 12.5 MG TABLET PO (14:15)
[2024-11-26 14:16] VITALS: BP 107/70; PULSE 67; RESP 14; O2SAT 100
--- NOTE | 2024-11-26 15:13 | ED.HA ---
HPI - Headache General Chief Complaint: Headache Stated Complaint: headache x 2 weeks Time Seen by Provider: 11/26/24 13:49 History of Present Illness HPI Narrative: Patient is a 24-year-old female who presents to the ER with headache x2 weeks. Bitemporal. Throbbing. Occasionally improves with OTC medications. No change in vision or hearing. No photophobia. Denies numbness or weakness in arm or leg. Typically worse at the end of the day after working. 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 Had 1 episode where she had spinning dizziness, unsure if it was related to taking naproxen. No sinus congestion sore throat or productive cough. Related Data Allergies Allergy/AdvReac Type Severity Reaction Status Date / Time No Known Allergies Allergy Verified 11/26/24 11:38 Review of Systems Review of Systems: All systems reviewed & are unremarkable except as noted in HPI and below Constitutional: Constitutional: Reports no additional constitutional complaints Eyes: Eyes: Reports no additional eye complaints ENT: Reports system reviewed and no additional complaints, except as documented Neurologic: Reports system reviewed and no additional complaints, except as documented PMFSH Past Medical History Medical History Encounter for Depo-Provera contraception Encounter for gynecological examination Psychogenic nonepileptic seizure Seizure disorder Family History Family History Mother Hypertension Social History Social History Smoking status: Never smoker Alcohol intake: never Substance use: never Lack of Transportation: No Lack of Food: Never True Current Housing: I Have Housing Concerned About Future Housing: No Difficulty Paying Gas/Electric Bills: No Difficulty Paying for Meds: No Currently Unemployed: No Education: High School Diploma/GED Difficulty w/ Childcare or Family Care: No Living arrangements: with family Occupation/Education: occupation Gender identity (if verbalized by the patient): Female Sexual Orientation (if Verbalized by the Patient): Straight or Heterosexual Spiritual care concerns: No Exam Narrative: GENERAL: Well-appearing, well-nourished, and in no acute distress. HEAD: Normocephalic, atraumatic. EYES: PERRL and EOMI. ENT: Mucous membranes moist. TMs normal bilaterally. NECK: Supple. CHEST: Clear to auscultation. No respiratory distress. HEART: Regular rate and rhythm. Normal peripheral pulses. EXTREMITIES: Normal range of motion. No edema. NEURO: Alert and oriented x3. PSYCH: Normal mood and affect. Course Course Emergency Course: Feels improved with meclizine. Discharge home. Recommend continue Tylenol and ibuprofen. Vital Signs Vital signs: Vital Signs Temperature 97.8 F 11/26/24 11:35 Pulse Rate 70 11/26/24 11:35 Respiratory Rate 14 11/26/24 11:35 Blood Pressure 112/72 11/26/24 11:35 Pulse Oximetry 100 11/26/24 11:35 Oxygen Delivery Room Air 11/26/24 11:35 Temperature 97.8 F 11/26/24 11:35 Pulse Rate 67 11/26/24 14:16 Respiratory Rate 14 11/26/24 14:16 Blood Pressure 107/70 11/26/24 14:16 Pulse Oximetry 100 11/26/24 14:16 Oxygen Delivery Room Air 11/26/24 11:35 Discharge Plan Discharge Clinical Impression: Headache, Vertigo Patient Disposition: Home, Self-Care Condition: Stable Instructions: Antibiotic Form Additional Instructions: Return ER if you lose consciousness, you have a seizure, you cannot keep down food or water, or you have additional concerns. Patient Language: Indonesian Prescriptions: New meclizine 12.5 mg tablet 12.5 mg PO TID Qty: 20 0RF No Action medroxyprogesterone [Depo-Provera] 150 mg/mL syringe 150 mg IM [id number] Qty: 1 0RF Follow-up/Referrals: Ajay Thomas MD [Physician] - 1 Week PHYSICIAN,DATE PITTER [Primary Care Provider] -
== END 2024-11-26 15:35 | disposition home or self-care (01) ==
PROVIDERS: Emergency Provider Emergency Medicine
DX: R51.9 Headache, unspecified (principal); R42 Dizziness and giddiness
CPT/HCPCS: 99283; A9270

== ENCOUNTER 2025-03-17 00:35 | Emergency (ER) | payer OTHER, SELFPAY ==
--- OUTSIDE RECORDS SUMMARY | 2025-03-17 00:37 | XMS_ITS | Clinical Summary ---
Author Organization [facility] Address [address] [place] [address] Phone Care Team Providers Care Director Building Name Role Phone Stephan Kirk MD Primary Care Provider [phone]- [phone] Allergies Active Allergy Reactions Criticality Noted Date [...] Encounters Date Type Department Care Team Description 03/07/2025 External Device Data [facility] Provider, Abstract 03/07/2025 External Device Data [facility] Provider, Abstract 03/07/2025 External Device Data [facility] Provider, Abstract 03/06/2025 External Device Data [facility] Provider, Abstract 02/20/2025 External Device Data [facility] Provider, Abstract 02/20/2025 External Device Data [facility] Provider, Abstract 02/07/2025 External Device Data [facility] Provider, Abstract 01/16/2025 External Device Data [facility] Provider, Abstract 01/11/2025 External Device Data [facility] Provider, Abstract 01/10/2025 External Device Data [facility] Provider, Abstract 01/09/2025 External Device Data [facility] Provider, Abstract 01/02/2025 External Device Data [facility] Provider, Abstract 12/26/2024 External Device Data [facility] Provider, Abstract from Last 3 Months Social History Tobacco Use Types Packs/Day Years Used Date Smoking Tobacco: Never Smokeless Tobacco: Never Tobacco Cessation:Counseling Given: Not Answered Alcohol Use Standard Drinks/Week Comments Not Currently 0 (1 standard drink = 0.6 oz pur e alcohol) Comments No Sex and Gender Information Value [...] 6:00 AM CDT Height 160 cm (5' 3) 03/06/2024 8:11 PM CDT Body Mass Index 23.56 03/06/2024 8:11 PM CDT Plan of Treatment Health Maintenance Due Date Last Done Comments CHLAMYDIA SCREENING (ANNUAL) 11-24 YEARS 2013 HPV VACCINES (1 - 3-dose series) 2017 DTAP/TDAP/TD VACCINES (1 - Tdap) 2021 HEPATITIS B VACCINES (1 of 3 - 19+ 3-dose series) 10/21 CERVICAL CANCER SCREENING 10/31/2023 HPV/Cotest (21-29) 10/31/2023 PAP SMEAR 10/31/2023 INFLUENZA VACCINE (#1) 2025 Insurance [facility] MEDICAID Advance Directives For more information, please contact: [phone] * Full Code (Latest Code Status on File) Date Activated Date Inactivated Comments 03/06/2024 3:03 PM 03/08/2024 2:46 PM Care Teams Director Building Relationship Specialty Start Date End Date Stephan Kirk MD [address] [place] [address] PCP - General Pediatrics 03/06/24
--- OUTSIDE RECORDS SUMMARY | 2025-03-17 00:37 | XMS_ITS | Clinical Summary ---
Author Organization [facility] Address [address] [place] [address] Care Team Providers Care Counter Top Assembler Name Role Phone Unavailable Primary Care Provider Unavailabl e Source Comments [facility] [employer],non-owned Affiliates and Associated Physician Practices is amultiple site organization consisting of ambulatory clinics and hospital sitesin [place], [place], [place] and [place]. This disclosure is being madepursuant to the Care Everywhere program and may not contain all information available regarding this patient. Last updated 18.[facility] [employer] [facility] Allergies Active Allergy Reactions Criticality Noted Date Comments Shellfish Allergy Itching 01/30/2023 Medications * Be aware that medications may not be up to date on this document. Alwaysverify current medications with the patient. chlorhexidine gluconate (HIBICLENS) 4 % solutionIndicat ions:Ingrown right big toenail Soak toe in Hibiclens and water for 10 minutes, 1-2 x day 1 bottles 2 8 Active Additional Information Patient not taking.Reported on [...] at Not on file Legal Sex Female 1:22 PM [employer] Gender Identity Not on file Sexual Orientation [...] 6:17 PM CDT Height 160 cm (5' 3) 01/30/2023 6:17 PM CDT Body Mass Index 23.91 01/30/2023 6:17 PM CDT Plan of Treatment Health Maintenance Due Date Last Done Comments HIV SCREENING 2017 HPV VACCINE (1 - 3-dose series) 2017 CHLAMYDIA/GONORRHEA SCREENING 2018 MENINGOCOCCAL (Group B) VACC INE SHARED DECISION-MAKING (1 of 2 - Standard) 2018 HEPATITIS C SCREENING 10/25/2020 DTAP/TDAP/TD VACCINES (1 - Tdap) 2021 HEPATITIS B VACCINE (1 of 3 - 19+ 3-dose series) 2021 PAP SMEAR 10/31/2023 COVID-19 VACCINE (1 - 2023-2 5 season) 2024 DEPRESSION SCREENING 08/23/2024 INFLUENZA VACCINE (#1) 2025 05/11/2013 ZOSTER VACCINE (1 of 2) 2052 HIB VACCINE Aged Out No longer eligi ble based on patient's age to complete this topic MENINGOCOCCAL GROUPS A/C/Y/W VACCINE Aged Out No longer eligible b ased on patient's age to complete this topic PNEUMOCOCCAL VACCINE Aged Out No long er eligible based on patient's age to complete this topic Insurance [facility]
[2025-03-17 00:38] VITALS: BP 130/57; PULSE 90; RESP 18; TEMP 37.1; O2SAT 97
== END 2025-03-17 00:44 | disposition left against medical advice (07) ==
DX: Z53.21 Procedure and treatment not carried out due to patient leaving prior to being seen by health care provider (principal)
CPT/HCPCS: 99199